=== PATIENT | male | born 1975 | race Caucasian/White ===

== ENCOUNTER 2017-12-30 17:36 | Emergency (ER) | payer OTHER ==
[~2017-12-30] VITALS: Ht 175.3 cm; Wt 116.1 kg
[2017-12-30 17:38] VITALS: BP_SYST 127
--- NOTE | 2017-12-30 17:40 | NUR ---
Placed in room 03 . Placed on nurse monitoring, blood pressure machine and pulse oximeter. To gown for exam. Side rails up.
--- NOTE | 2017-12-30 17:48 | NUR ---
Pt brought by self, A&Ox4, pt presents to ER with chest pain radiating to L arm, pt states patient has been intermittent today, VS WNL, respirations even and unlabored, cap refill <3.
--- NOTE | 2017-12-30 17:50 | NUR ---
Eboni Aiken at bedside examining patient
[2017-12-30] MEDS ORDERED: ASPIRIN 325 MG TABLET PO ONE (18:00)
[2017-12-30 18:10] LABS: BASOPHILS # (AUTO) 0.1 K/uL (0.0-0.2); BASOPHILS % (AUTO) 1.2 % (0.0-2.0); EOSINOPHILS # (AUTO) 0.3 K/uL (0.0-0.4); EOSINOPHILS % (AUTO) 2.9 % (0.0-4.0); HEMATOCRIT 44.5 % (36-54); HEMOGLOBIN 15.1 g/dL (14.0-18.0); LYMPHOCYTES # (AUTO) 1.9 K/uL (1.0-5.5); LYMPHOCYTES % (AUTO) 20.6 % (20.5-51.5); MEAN CORPUSCULAR HEMOGLOBIN 29 pg (27-31); MEAN CORPUSCULAR HGB CONC 34 % (32-36); MEAN CORPUSCULAR VOLUME 86 fL (79.0-98.0); MONOCYTES # (AUTO) 0.7 K/uL (0.0-1.0); MONOCYTES % (AUTO) 7.5 % (1.7-9.3); NEUTROPHILS # (AUTO) 6.4 K/uL (1.8-7.7); NEUTROPHILS % (AUTO) 67.8 % (40.0-70.0); PLATELET COUNT (AUTO) 300 K/uL (130-430); RED BLOOD CELL COUNT(AUTO) 5.18 MIL/uL (4.2-6.2); WHITE BLOOD COUNT (AUTO) 9.4 K/uL (4.8-10.8)
[2017-12-30 18:15] LABS: ANION GAP 11 (5-15); CALCIUM 9.1 mg/dL (8.4-11.0); CHLORIDE 106 mmol/L (98-107); CREATININE 1.27 mg/dL (0.55-1.30); GLUCOSE 187 mg/dL (70-99); SODIUM SERUM 141 mmol/L (136-145); UREA NITROGEN, BLOOD 17 mg/dL (8-21)
[2017-12-30 18:18] LABS: GFR AFRICAN AMERICAN 79 mL/min (>90)
[2017-12-30 18:27] LABS: ALANINE AMINOTRANSFERASE 49 U/L (12-78); ASPARTATE AMINOTRANSFERASE 26 U/L (10-37); TOTAL BILIRUBIN 0.4 mg/dL (0.0-1.0)
--- NOTE | 2017-12-30 18:30 | NUR ---
Patient resting quietly in no acute distress. Awaiting lab results and dispo.
--- NOTE | 2017-12-30 18:35 | NUR ---
Requested for urine sample, pt states "I don't feel like I need to pee right now. I'll need some water." Two cups of water provided per pt request.
--- NOTE | 2017-12-30 18:41 | NUR ---
Aspirin administered. Pt tolerated well. No adverse reactions noted. Dr. Sandoval at bedside updating pt on status.
--- NOTE | 2017-12-30 18:50 | NUR ---
Per Dr. Sandoval, Urinalysis is not necessary.
--- NOTE | 2017-12-30 18:54 | NUR ---
Patient given written and verbal discharge instructions and verbalizes understanding. ER MD Sandoval discussed with patient the results and treatment provided. Patient in stable condition. ID arm band removed. IV catheter removed intact and dressing applied, no active bleeding. No Rx of given. Patient educated on pain management and to follow up with PMD. Pain Scale 0. Opportunity for questions provided and answered. Medication side effect fact sheet provided.
[2017-12-30 18:55] VITALS: BP_SYST 122
== END 2017-12-30 18:54 | disposition home or self-care (01) ==
LOC: SED 17:36
DX: R07.89 Other chest pain (principal); R03.0 Elevated blood-pressure reading, without diagnosis of hypertension
CPT/HCPCS: 36415; 71045; 80053; 84484; 85025; 93005; 99285